=== PATIENT | female | born 1985 | race Caucasian/White ===

== ENCOUNTER → 2023-08-23 | Outpatient (CLI) | payer BC ==
[2023-08-26 02:51] LABS: PANCREATIC ELASTASE,FECAL 751 ug/g (>=100)
== END | disposition home or self-care (01) ==
LOC: LAB SHORT 13:43 → LAB 13:43
PROVIDERS: Physician Assistant Medical
DX: R19.5 Other fecal abnormalities (principal)
CPT/HCPCS: 82653

== ENCOUNTER 2024-04-15 08:08 | Day surgery (SDC) | payer BC ==
[~2024-04-15] VITALS: Ht 157.5 cm; Wt 83.1 kg
[~2024-04-15 08:08] MED LIST: BUPR150ER PO; DESV50 PO; METHI10 PO; VILAZODONE HCL20 MG PO
[2024-04-15] MEDS ORDERED: OXYM.05NI (08:30)
[2024-04-15] MEDS ORDERED: ERGO400 (08:30)
[2024-04-15] MEDS ORDERED: propofoL 50 ML IV ONE (09:03)
[2024-04-15] MEDS ORDERED: Lactated Ringer's 1,000 ML IV ONE ×2 (09:03→09:29)
[2024-04-15 10:48] VITALS: BP 106/72
== END 2024-04-15 10:48 | disposition home or self-care (01) ==
LOC: ORSCSDS 08:08
PROVIDERS: Internal Medicine Gastroenterology
PROC: 0DBE8ZX Excision of Large Intestine, Via Natural or Artificial Opening Endoscopic, Diagnostic (ICD-10-PCS; principal; 2024-04-15 09:30)
PROC: 0DB68ZX Excision of Stomach, Via Natural or Artificial Opening Endoscopic, Diagnostic (ICD-10-PCS; principal; 2024-04-15 09:30)
PROC: 0DB98ZX Excision of Duodenum, Via Natural or Artificial Opening Endoscopic, Diagnostic (ICD-10-PCS; principal; 2024-04-15 09:30)
DX: R19.4 Change in bowel habit (principal); R10.11 Right upper quadrant pain; K29.70 Gastritis, unspecified, without bleeding; K64.8 Other hemorrhoids; Z90.49 Acquired absence of other specified parts of digestive tract; E05.00 Thyrotoxicosis with diffuse goiter without thyrotoxic crisis or storm; Z79.899 Other long term (current) drug therapy
CPT/HCPCS: 88305; 88342; J2704; J7120